=== PATIENT | male | born 1985 | race Caucasian/White ===

== ENCOUNTER 2024-01-02 18:09 | Emergency (ER) | payer BC ==
[~2024-01-02] VITALS: Ht 190.5 cm; Wt 81.8 kg
[2024-01-02 18:19] VITALS: BP 114/85
[2024-01-02] MEDS ORDERED: Lidocaine 1% w EPI (1:100,000) 20 ML Multi-Dose VIAL SQ ONE (18:30)
[2024-01-02] MEDS ORDERED: Tetanus,Diphther Toxoid Adult 0.5 ML SYRINGE IM ONE (19:30)
== END 2024-01-02 19:43 | disposition home or self-care (01) ==
LOC: ED 18:09
DX: S61.211A Laceration without foreign body of left index finger without damage to nail, initial encounter (principal); Z23 Encounter for immunization; W26.0XXA Contact with knife, initial encounter; Y92.090 Kitchen in other non-institutional residence as the place of occurrence of the external cause
CPT/HCPCS: 90714